=== PATIENT | male | born 1980 | race African-American/Black ===

== ENCOUNTER 2018-06-20 12:28 | Day surgery (SDC) | payer OTHER, SELFPAY ==
--- NOTE | 2018-06-20 | PATH_ITS ---
[facility] Accession Number: [id number] . 01 Material submitted: . PART A: TERMINAL ILEUM BIOPSIES PART B: RECTAL BIOPSIES . 02 Diagnosis: A. Terminal Ileum, Biopsies: Small bowel mucosa with no diagnostic abnormality. Negative for active inflammation, dysplasia, and malignancy. . B. Rectum, Biopsies: Invasive adenocarcinoma, moderately to poorly differentiated, arising in a background of ulcer. Please see comment. Lymphovascular invasion not identified. MRV/06/21/2018 . 02 Comment: Part B: The biopsies are of an invasive adenocarcinoma which invades through the muscularis mucosae and submucosa, and invades thick muscle favored to be superficial muscularis propria. . As part of routine quality process lead, Dr. Bridges also reviewed part B of this case and agrees with the diagnosis. Dr. Dean gave preliminary results to [facility] on 06/21/2018. Immunohistochemical stains will be performed and the results reported as an addendum. . 02 Electronically signed: . Valery Dean MD, Pathologist NPI- [id number] . 01 Gross description: . Part A: TERMINAL ILEUM BIOPSIES: Received in formalin are multiple fragment(s) of keyes, soft tissue measuring 0.1 x 0.1 x 0.1 cm to 0.5 x 0.2 x 0.2 cm which is entirely submitted and submitted entirely in 1 cassette(s) Part B: RECTAL BIOPSIES: Received in formalin are multiple fragment(s) of keyes, soft tissue measuring 0.1 x 0.1 x 0.1 cm to 0.3 x 0.3 x 0.3 cm which is entirely submitted and submitted entirely in 1 cassette(s) /DMC /DMC . 02 Pathologist provided ICD-10: C20 . 02 CPT . 463744, 438083, [id number], [id number] Performed at: 01 [facility] [address] [place] [address], [place], [place] [id number] MD Jesus Lynne MD Phone: [phone] Performed at: [address] [facility] [id number] [place], [place] [id number] MD Valery Dean MD Phone: [phone]
[2018-06-20 12:58] VITALS: BP 129/83; PULSE 87; RESP 16; TEMP 36.4; O2SAT 98; BMI 29.1
[2018-06-20] MEDS: SODIUM CHLORIDE 0.9% 1,000 ML 200 ML IV (13:16)
--- NOTE | 2018-06-20 13:44 | PM.HP.1 ---
History of Present Illness Date Patient Seen: 06/20/18 Time Patient Seen: 13:44 Chief complaint: [id number] Narrative: 38-year-old otherwise healthy male who presented recently with rectal bleeding and change in bowel habits. He was evaluated in the office as an outpatient on May 16, 2018. at that time he had recent episodes of nonpainful blood per rectum. His symptoms have since subsided somewhat. He has no other gastrointestinal issues. He presents today for scheduled colonoscopy. His history and symptoms otherwise have not changed. Patient History Family & Social History Social History: household members spouse Meds Home Medications Medication Instructions Recorded Confirmed Type No Known Home Medications 06/20/18 06/20/18 History Allergies Allergy/AdvReac Type Severity Reaction Status Date / Time No Known Drug Allergies Allergy Verified 06/20/18 12:51 Review of Systems Review of Systems All systems reviewed & are unremarkable except as noted in HPI and below Exam Vital Signs (past 8 hours): - 06/20/18 12:58 Temperature 97.5 F L Pulse Rate 87 Respiratory Rate 16 Blood Pressure 129/83 Pulse Oximetry 98 Oxygen Delivery Method Room Air Narrative Exam Narrative: Well-nourished well-developed male in no acute distress. Alert oriented x3. neck supple regular rate and rhythm abdomen soft, nondistended, nontender, no masses extremities show no clubbing or cyanosis rectal examination deferred today Objective Labs Labs: no new laboratory or radiographic studies for review since initial visit Assessment & Plan Assessment & Plan narrative: 38-year-old male with recent rectal bleeding and change in bowel habits. I reiterated recommendation for colonoscopy given the possibility of colitis or even smaller possibility of neoplasia. Technical details again reviewed. Risks, benefits, alternatives explained. I reiterated all these issues as per my note of May 16, 2018. Consent remains on the chart and updated today. Proceed with colonoscopy today as planned.
--- NOTE | 2018-06-20 13:46 | PM.PREOP ---
Pre-operative Note Interval Note History & Physical reviewed/Exam performed by Physician: Yes Changes to H&P: No H&P completed within 30 days and has changed as indicated here:: Patient seen and examined. History physical examination updated and placed on the chart today. Proceed with colonoscopy today as planned. ASA Class (for procedural sedation): I
[2018-06-20] MEDS: MIDAZOLAM 5 MG/5 ML VIAL IV (13:53)
[2018-06-20] MEDS: fentaNYL 250 MCG/5 ML INJ IV (13:53)
--- NOTE | 2018-06-20 14:39 | PM.OP.ENDO ---
Operative Date/Time/Diagnoses Date of procedure: 06/20/18 Time of procedure: 14:40 Pre-op diagnosis: Rectal bleeding and change in bowel habits Post-op diagnosis: other ( rectal mass suspicious for invasive neoplasm at 8 cm from anal verge) Procedure & Clinicians Study performed: 1. Sedation per surgeon 2. colonoscopy with cold forceps biopsies 3. Anoscopy with further biopsies of rectal mass using large cold punch biopsy Same procedure as scheduled: Yes Indications: 38-year-old male who presented with rectal bleeding and change in bowel habits. He was recommended undergo colonoscopy. Surgeon: Magan De Procedure Notes SCOAP/Timeout: yes Procedure in detail: After obtaining informed consent, the patient was brought to the GI suite and placed in the left lateral decubitus position on the examination table. After placement of appropriate monitors, the patient was given incremental doses of Versed and Fentanyl until an appropriate level of sedation was achieved. A time out was held per SCOAP protocol. A digital rectal examination was performed and did not reveal any masses or obstructing lesions. The colonoscope was gently passed into the patient's anus and the entire colon navigated to the level of the cecum with minimal difficulty. terminal ileum was intubated and was noted to be grossly normal but biopsies were taken. Once in the cecum, the scope was withdrawn being sure to go before and beyond all mucosal folds and prominences and get an excellent examination. The findings are noted above. At the level of the rectal vault, the scope was retroflexed and the internal anal canal was examined. The scope was straightened and air aspirated from the colon. The instrument was removed from the patient's body. Rigid anoscope was inserted to examine the rectal mass which was then measured at approximately 8 cm from the anal verge. Multiple punch biopsies were then taken under direct visualization. Hemostasis was achieved with Gelfoam and dibucaine ointment packing. Once hemostasis was verified the scope was withdrawn and the procedure was concluded. The patient was allowed to awaken from sedation without difficulty and taken to the post-anesthesia care unit in good condition. Scope withdrawal time: 15:00 min Sedation minutes: 44 Findings: possible cancer and other findings ( otherwise grossly normal colon and rectum without other neoplastic disease or inflammatory changes) Specimen(s): other ( 1. Terminal ileum biopsies 2. Rectal mass biopsies) Complications: none Impression: 1. Possible rectal cancer Recommendations: Other recommendation ( will await biopsy results but likely needs further imaging for staging and potential adjuvant therapy with colorectal surgery consultation) Plan for aftercare: 1. Discharge home Follow up: weeks ( 1 week in surgery clinic) Disposition: PACU
[2018-06-20 14:40] VITALS: BP 130/84; PULSE 86; RESP 14; TEMP 36.4; O2SAT 96
[2018-06-20 14:45] VITALS: BP 125/85; PULSE 76; RESP 12; O2SAT 97
[2018-06-20 14:50] VITALS: BP 130/88; PULSE 70; RESP 12; O2SAT 98
[2018-06-20 14:55] VITALS: BP 124/83; PULSE 64; RESP 14; O2SAT 97
[2018-06-20 15:10] VITALS: BP 128/86; PULSE 64; RESP 16; TEMP 36.1; O2SAT 98
--- NOTE | 2018-06-20 15:30 | SUR.PHASEII ---
Delay in discharge as going to get sandwich for patient since he still is a bit sleepy.
== END 2018-06-20 15:54 | disposition home or self-care (01) ==
PROVIDERS: PCP Family Medicine; Visit Provider Surgery
PROC: 0DJD8ZZ Inspection of Lower Intestinal Tract, Via Natural or Artificial Opening Endoscopic (ICD-10-PCS; CPT 45378; principal; 2018-06-20 14:00)
DX: C20 Malignant neoplasm of rectum (principal)
CPT/HCPCS: 45380; 88305; 88341; 88342; 99152; 99153; J2250; J3010

== ENCOUNTER → 2018-06-26 12:20 | Outpatient (CLI) | payer OTHER, SELFPAY ==
[2018-06-26 13:07] LABS: Add Manual Diff / Slide Review NO; Basophils Absolute Auto 100 /uL (0-100); Basophils Percent Auto 0.8 % (0-2); Eosinophils Absolute Auto 200 /uL (0-450); Eosinophils Percent Auto 2.3 % (2-4); Hematocrit 43.4 % (41-53); Hemoglobin 14.3 g/dL (13.5-17.5); Lymphocytes Absolute Auto 2400 /uL (1100-4500); Mean Corpuscular HGB Conc 32.9 % (30-36); Mean Corpuscular Hemoglobin 28.7 PG (26-34); Mean Corpuscular Volume 87.4 fL (80-100); Monocytes Absolute Auto 900 /uL (0-900); Monocytes Percent Auto 14.5 % (3-14); Neutrophils Absolute Auto 2900 /uL (1500-7000); Neutrophils Percent Auto 45.4 % (50-75); Platelet Count 294 X10^3/uL (150-400); Red Blood Cell Count 4.96 X10^6/uL (4.5-5.9); Red Cell Distribution Width 13.4 % (11.6-14.8); White Blood Cell Count 6.4 X10^3/uL (4.5-11.0)
[2018-06-26 13:26] LABS: HEMOLYSIS < 15 (0-50)
[2018-06-26 13:31] LABS: Alanine Aminotransferase 29 IU/L (21-72); Albumin 4.4 g/dL (3.5-5.0); Albumin Globulin Ratio 1.3 (1.0-2.8); Alkaline Phosphatase 74 U/L (38-126); Aspartate Aminotransferase 28 IU/L (17-59); Bilirubin Total 0.3 mg/dL (0.2-1.3); Blood Urea Nitrogen 14 mg/dL (9-20); Calcium 9.6 mg/dL (8.4-10.2); Carbon Dioxide 27 mmol/L (22-32); Chloride 101 mmol/L (98-107); Estimated Glomerular Filt Rate > 60.0 mL/min (>60); Globulin 3.3 g/dL (1.7-4.1); Glucose 96 mg/dL (70-100); Potassium 4.2 mmol/L (3.4-5.1); Sodium 140 mmol/L (137-145); Total Protein 7.7 g/dL (6.3-8.2)
[2018-06-26 14:04] LABS: Carcinoembryonic Antigen 2.7 ng/mL (0.1-3.0)
== END ==
PROVIDERS: PCP Family Medicine; Visit Provider Specialist
DX: C20 Malignant neoplasm of rectum (principal)
CPT/HCPCS: 36415; 80053; 82378; 85025; 99213

== ENCOUNTER → 2018-07-04 06:01 | Outpatient (CLI) | payer OTHER, SELFPAY ==
--- NOTE | 2018-07-04 06:03 | DI.MRI.S_ITS ---
PROCEDURE: MR PELIS WO/W CON INDICATIONS: Rectal cancer r/o regional spread/wall depth of invasion TECHNIQUE: Coronal HASTE, sagittal T2 FSE, axial T1 FSE, axial and coronal nonbreath-hold T2 FSE. Axial dynamic VIBE during administration of contrast. Post-contrast axial and coronal VIBE/2-D FLASH with fat saturation from the iliac crests to the symphysis. Optional diffusion weighted imaging and ADC may be performed. COMPARISON: None. FINDINGS: Image quality: Excellent. Rectum: Morphology: Semicircumferential. Clock face of tumor involvement: 11:30 counter clockwise to approximately 5:30. Maximal mural thickness is 1.2 centimeters. Mucinous (high T2 signal): Absent. Craniocaudal length: 4.8 cm along the posterior right lateral curvature of the rectum Distance to anal verge: 9.0 Distance to top of sphincter complex/anorectal junction: 5.2 cm Relationship to anterior peritoneal reflection: Below Tumor at or below puborectalis sling: Above T staging: Depth of extramural invasion: 12 mm. Extramural vascular invasion: Not seen T3 tumors only: distance to mesorectal fascia (circumferential resection margin): 2.0 mm, right posterolateral border of the rectal mass with direct extension into the mesorectal fat, and best seen on axial imaging series 3 image 32. Postcontrast axial imaging and diffusion imaging raises concern for presence of extension of a thin band of tissue through the mesorectal fascial layer along the right lateral border of the sacrococcygeal junction area (series 23 image 110 and post contrast series 14 image 84). Pelvic organ involvement: Genitourinary: None found Pelvic sidewall (obturator internus, piriformis, ischiococcygeus muscles): None found Pelvic floor (pubococcygeus, iliococcygeus, puborectalis, levator plate): None found Sacrum: Sacrococcygeal junction area suspicious on the right for direct tumor invasion from the nodular mass extending from the right posterolateral rectal wall into the ischial rectal fossa fat. Vessels (internal and external iliac arteries and veins): No tumor invasion into vessels found. Nerves (lumbosacral nerve roots): None identified. Regional lymph nodes (mesorectal, inguinal, iliac): None seen. Other bowel and peritoneum: No pathologic free pelvic fluid. More proximal colon and small bowel loops are normal in caliber. Bones: Marrow is normal in overall signal. IMPRESSION: There is a moderate sized right lateral rectal wall mass, malignant in appearance, with direct focal tumor invasion through the serosal surface of the rectum at the 7:00 position, leading directly to a tumor mass in the right posterolateral ischial rectal fossa fat, which measures up to approximately 1.0 x 1.5 cm. There is extension of this nodular mass to within 2 mm of the mesorectal fascial layer at its right posterolateral border, and a subtle asymmetric increased enhancement and diffusion signal extends from this mass along the right lateral border of the sacrococcygeal junction, below the threshold for accurate discrimination of asymmetric vessel versus early direct tumor invasion as the underlying cause of that more peripheral asymmetric appearance. No local or regional adenopathy is seen. No osseous marrow space metastatic disease is found. Dictated by: Kwaku Malone M.D. on 07/05/2018 at 13:04 Approved by: Kwaku Malone M.D. on 07/05/2018 at 13:55
--- NOTE | 2018-07-04 08:32 | DI.CT.S_ITS ---
PROCEDURE: CT CHEST ABD PEL W CON INDICATIONS: Rectal cancer rule out metastatic disease TECHNIQUE: After the administration of oral and intravenous contrast, 5 mm thick sections acquired from the lung apices to the symphysis. 5 mm coronal and sagittal reformats were performed, with additional 7 mm coronal MIP reformats through the lungs. For radiation dose reduction, the following was used: automated exposure control, adjustment of mA and/or kV according to patient size. COMPARISON: None. FINDINGS: Image quality: Excellent. CHEST: Lungs and pleura: Mild dependent atelectasis in posterior aspect of bilateral lung holt are seen. No discrete pulmonary nodule or mass is seen. The No acute airspace opacities. No pleural effusions or pneumothorax. Central and peripheral airways appear patent and normal in caliber. Mediastinum: Heart size is normal. No pericardial effusion. No mediastinal or hilar adenopathy by size criteria. Thoracic aorta and central pulmonary arteries are normal in size. Esophagus is normal in caliber. There is a small hiatal hernia. Chest wall: No axillary or supraclavicular adenopathy by size criteria. Thyroid gland is within normal limits. ABDOMEN: Solid organs: Liver is normal in size and enhancement. Gallbladder is within normal limits. Biliary system is non dilated. Pancreas enhances normally. Spleen is normal in size and enhancement. No adrenal nodules. Kidneys demonstrate normal size and enhancement, without hydronephrosis. Peritoneum and bowel: There is no evidence of bowel obstruction. Fecal stasis throughout the colon is seen. No abnormal wall thickening is seen in stomach, small bowel loops or colon. Mild sigmoid diverticulosis is seen, and no evidence of acute diverticulitis. There is suggestion of lower rectal wall thickening, which may be related to patient's clinical diagnosis of rectal cancer. Nodes and vessels: No retroperitoneal or mesenteric adenopathy by size criteria. Aorta and inferior vena cava are normal in size. Miscellaneous: There is a periumbilical hernia containing small bowel loops. No evidence of incarceration. PELVIS: Genitourinary: Bladder wall thickness is normal. Miscellaneous: No inguinal hernias or adenopathy. Bones: No suspicious bony lesions. No vertebral body compression fractures. IMPRESSION: 1. Suggestion of lower rectal wall thickening, likely related to patient's clinical diagnosis of rectal cancer. No other area of bowel wall thickening or stricture. Fecal stasis throughout the colon. 2. No evidence of metastatic disease in chest, abdomen or pelvis. Dictated by: Osiel Howard M.D. on 07/04/2018 at 10:33 Approved by: Osiel Howard M.D. on 07/04/2018 at 10:58
== END ==
PROVIDERS: PCP Family Medicine; Visit Provider Specialist
DX: C20 Malignant neoplasm of rectum (principal)
CPT/HCPCS: 71260; 72197; 74177; Q9967

== ENCOUNTER 2019-06-03 07:00 | Day surgery (SDC) | payer OTHER, SELFPAY ==
[2019-06-03 07:56] VITALS: BMI 30.3
[2019-06-03 08:00] VITALS: BP 128/85; PULSE 79; RESP 16; TEMP 36.2; O2SAT 99
[2019-06-03] MEDS: LACTATED RINGERS 1,000 ML 100 ML IV (08:12)
--- NOTE | 2019-06-03 08:38 | PM.HP.1 ---
History of Present Illness History of Present Illness Date Patient Seen: 06/03/19 Time Patient Seen: 08:38 Chief complaint: [id number] Narrative: Kendrick is 39-year-old male who developed rectal cancer has completed surgical resection chemo and radiation. He presents today referred by Oncology for Port-A-Cath removal. He has had no issues with the port up until this time. He is feeling well today pain fever nausea vomiting. He is a nonsmoker and not on anticoagulation Patient History Medical History Neuropathy (Acute) No significant past medical history (Acute) Rectal cancer (Acute) Surgical History No significant past surgical history (Acute) Family & Social History Family History Mother Hypertension Breast cancer Father Hypertension Social History: household members spouse Tobacco & Substance use: Smoking Status Never smoker alcohol intake never Substance Use Type does not use Meds Home Medications and Allergies Home Medications Medication Instructions Recorded Confirmed Type No Known Home Medications 06/20/18 06/03/19 History Allergies Allergy/AdvReac Type Severity Reaction Status Date / Time No Known Drug Allergies Allergy Verified 06/03/19 07:53 Review of Systems Review of Systems Narrative: A 10 point review of systems is negative except as noted in the HPI Exam Vital Signs (past 8 hours): - 06/03/19 08:00 Temperature 97.1 F L Pulse Rate 79 Respiratory Rate 16 Blood Pressure 128/85 Pulse Oximetry 99 Oxygen Delivery Method Room Air Narrative Exam Narrative: General-no acute distress, well nourished HEENT-moist mucous membranes, no scleral icterus Neck-supple, no lymphadenopathy Chest- non labored respirations, clear to auscultation bilaterally Cardiac-regular rate no peripheral edema Abdomen-soft, nontender, non distended Extremities-warm, well perfused Neurological-alert and oriented, no focal deficits Assessment & Plan Assessment and plan (1) Port-A-Cath in place: Current visit: Yes Status: Acute Assessment & Plan narrative: Peggy is a 39-year-old male with history of rectal cancer is completed surgical resection chemo and radiation and is here for Port-A-Cath removal. We discussed the technical nature of the procedure expected postoperative recovery in the risk of the operation including bleeding infection air embolus. His questions have been answered he is in agreement with this plan.
[2019-06-03] MEDS: CEFAZOLIN 2 GM/100 ML FROZ.PIGGY IV (08:45)
--- NOTE | 2019-06-03 09:08 | SUR.OPER ---
Supine on padded OR bed, head on pillow, right arm secured on padded arm board at <90 degrees abduction,left arm padded with gel pad and secured at side, legs uncrossed, safety belt at thigh, tape over blanket over lower legs.
[2019-06-03] MEDS: BUPIVACAINE 0.25% (PF) VIAL 30 ML INJ (09:16)
[2019-06-03 09:35] VITALS: BP 137/90; PULSE 70; RESP 15; TEMP 36.3; O2SAT 98
--- NOTE | 2019-06-03 09:43 | PM.OP.1 ---
Operative Date/Time/Diagnoses Date of procedure: 06/03/19 Time of procedure: 09:43 Pre-op diagnosis: Port-A-Cath Rectal cancer Post-op diagnosis: same Procedure & Clinicians Procedure: Removal Port-A-Cath Same procedure as scheduled: Yes Indications: History of rectal cancer has completed chemotherapy Surgeon: Enzo Alves Anesthesia Type: General Operative Notes Findings: Catheter and Port-A-Cath removed intact Specimen(s): none sent Estimated Blood Loss (mL): 10 Procedure in detail: Patient was brought to the operating room placed supine on the table. bilateral lower extremity compression devices were applied. he received Ancef prior to skin incision. General anesthesia was induced. time-out was performed ensure the correct patient procedure necessary equipment within the operating room. skin over the Port-A-Cath was infiltrated with 0.25% bupivacaine. Skin incision was made through the previous scar. Subcutaneous tissues were divided with electrocautery. The Port-A-Cath was encountered. The Port-A-Cath was then freed from the surrounding tissue. the catheter entry site was then closed with a [id number] of Vicryl suture will simultaneously withdrawing the catheter. The catheter and Port-A-Cath were inspected and they were intact. hemostasis was achieved the wound was irrigated with saline. The subcutaneous tissues were reapproximated using Vicryl suture skin closed with Monocryl running suture followed by application of Dermabond and Steri-Strips. he emerged from general anesthesia was transferred to the postoperative care unit in stable condition Complications: none Post-operative Condition: stable Disposition: same day surgery
[2019-06-03 10:11] VITALS: BP 127/83; PULSE 84; RESP 16; TEMP 36.7; O2SAT 97
== END 2019-06-03 10:25 | disposition home or self-care (01) ==
PROVIDERS: PCP Family Medicine; Referring Provider Surgery; Visit Provider Surgery
PROC: (CPT 36590; principal; 2019-06-03 08:45)
DX: Z45.2 Encounter for adjustment and management of vascular access device (principal); Z85.048 Personal history of other malignant neoplasm of rectum, rectosigmoid junction, and anus
CPT/HCPCS: 36590; J0690; J2250; J2704

== ENCOUNTER → 2019-10-25 14:59 | Outpatient (CLI) | payer OTHER, SELFPAY ==
[2019-10-27 20:38] LABS: COVID19 Sendout Not Detected (Not Detect)
== END ==
PROVIDERS: PCP Family Medicine; Visit Provider Physician Assistant
DX: Z11.59 Encounter for screening for other viral diseases (principal)
CPT/HCPCS: 87635